=== PATIENT | male | born 1945 | race Caucasian/White ===

== ENCOUNTER 2018-01-11 07:43 | Day surgery (SDC) | payer OTHER ==
--- NOTE | 2018-01-11 08:23 | PDGENHP ---
History & Physical Chief Complaint: H/O CLOTS AND PE. PRE-MSK SURGERY FILTER PLACEMENT History of Present Illness: RLE CLOT X A LEAST ONE YEAR. H/O PE. NEEDS RT KNEE AND LT SHOULDER SURGERIES. Pertinent Past, Social, Family History: NONE SMOKER. 2016 BACK SURGERY. Relevant Physical Exam: N/A Cardiorespiratory Assessment: RRR, CTA
--- NOTE | 2018-01-11 08:25 | PDPROPOC ---
Sedation Plan of Care Sedation Plan of Care: vital signs stable, mental status noted, patient educated of risks, benefits, alternatives, patient can tolerate sedation ASA Classification: ASA 1 Planned drugs: fentanyl, midazolam Mallampati Score: Class 1 Mallampati Reference Image: Patient passed 3-3-2 rule?: Yes
[2018-01-11] MEDS ORDERED: FLUMAZENIL 0.5 MG/5 ML MDV IVP ONE (08:46)
[2018-01-11] MEDS ORDERED: NALOXONE HCL 0.4 MG/ML INJ ONE (08:47)
[2018-01-11] MEDS ORDERED: MIDAZOLAM 2 MG/2 ML VIAL ONE (08:47)
[2018-01-11] MEDS ORDERED: fentaNYL 100 MCG/2 ML INJ ONE (08:47)
[2018-01-11] MEDS ORDERED: fentaNYL 100 MCG/2 ML INJ IVP PRN (08:56)
[2018-01-11] MEDS ORDERED: FLUMAZENIL 0.5 MG/5 ML MDV IVP PRN (08:56)
[2018-01-11] MEDS ORDERED: MIDAZOLAM 2 MG/2 ML VIAL IVP PRN (08:56)
[2018-01-11] MEDS ORDERED: MEPERIDINE 25 MG/ML SYR IVP PRN (08:56)
[2018-01-11] MEDS ORDERED: NALOXONE HCL 0.4 MG/ML INJ IVP PRN (08:56)
[2018-01-11] MEDS ORDERED: NS 1,000 ML IV SCH (09:00)
[2018-01-11 09:17] LABS: INR 1.15 (0.83-1.16); PROTIME(PATIENT) 14.9 SEC (12.0-15.0)
[2018-01-11] MEDS ORDERED: LIDOCAINE 1% 300 MG/30 ML SDV ONE (09:50)
[2018-01-11] MEDS ORDERED: IOPAMIDOL (ISOVUE-300) 100 ML BTL ONE (09:50)
[2018-01-11] MEDS ORDERED: ONDANSETRON 4 MG/2 ML VIAL IVP PRN (10:00)
[2018-01-11] MEDS ORDERED: ACETAMINOPHEN 325 MG TAB PO PRN (10:00)
[2018-01-11 11:47] VITALS: BP 150/95
== END 2018-01-11 11:20 | disposition home or self-care (01) ==
LOC: FIMAGING 07:43
PROVIDERS: ATTEND Radiology Diagnostic Radiology
PROC: B5191ZZ Fluoroscopy of Inferior Vena Cava using Low Osmolar Contrast (ICD-10-PCS; principal; 2018-01-11)
PROC: 06H03DZ Insertion of Intraluminal Device into Inferior Vena Cava, Percutaneous Approach (ICD-10-PCS; principal; 2018-01-11)
PROC: B543ZZA Ultrasonography of Right Jugular Veins, Guidance (ICD-10-PCS; principal; 2018-01-11)
DX: I82.409 Acute embolism and thrombosis of unspecified deep veins of unspecified lower extremity (principal); I26.99 Other pulmonary embolism without acute cor pulmonale; M85.819 Other specified disorders of bone density and structure, unspecified shoulder; I51.9 Heart disease, unspecified; Z79.01 Long term (current) use of anticoagulants
CPT/HCPCS: 37191; 75825; 99152; C1769; J1644; J2250; J2310; J3010; Q9967

== ENCOUNTER 2018-01-23 07:32 | Day surgery (SDC) | payer OTHER ==
[2018-01-23] MEDS ORDERED: LIDOCAINE 1% 2 ML INJ ID PRN (07:56)
[2018-01-23] MEDS ORDERED: LR 1,000 ML IV ONE (07:56)
[2018-01-23] MEDS ORDERED: BUPIVACAINE/EPI 0.5% 30 ML SDV ONE (08:31)
[2018-01-23] MEDS ORDERED: ceFAZolin 2 GM/SWFI 2 GM/20 ML SYR IVP ONE (09:20)
[2018-01-23] MEDS ORDERED: ACETAMINOPHEN 500 MG TAB PO ONE (09:20)
[2018-01-23] MEDS ORDERED: ROPIVACAINE 0.2% 80 MG, EPINEPHrine 0.2 MG, KETOROLAC TROMETHAMINE 30 MG in SYRINGE 0 ML IU ONE (09:20)
--- NOTE | 2018-01-23 09:22 | PDHPUP ---
History & Physical Update H&P update statement: This history and physical update is based on an assessment of the patient which was completed after admission or registration (within 24 hours), but prior to the surgery/procedure. H&P update: H&P reviewed & patient examined
[2018-01-23] MEDS ORDERED: LR 1,000 ML IV SCH (09:30)
[2018-01-23] MEDS ORDERED: ceFAZolin 2 GM/DEXTROSE 100 ML IV ONE (09:30)
[2018-01-23] MEDS ORDERED: MIDAZOLAM 2 MG/2 ML VIAL IVP ONE (09:44)
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
[2018-01-23] MEDS ORDERED: MIDAZOLAM 2 MG/2 ML VIAL ONE (09:47)
[2018-01-23] MEDS ORDERED: PROPOFOL/EMULSION 500 MG/50 ML BOTTLE IV ONE (09:54)
[2018-01-23] MEDS ORDERED: fentaNYL 100 MCG/2 ML INJ ONE (09:56)
[2018-01-23] MEDS ORDERED: ONDANSETRON 4 MG/2 ML VIAL ONE (10:20)
[2018-01-23] MEDS ORDERED: HYDROmorphONE/DILAUDID 1 MG/ML INJ IVP PRN (10:45)
[2018-01-23] MEDS ORDERED: PROMETHAZINE HCL 25 MG/ML INJ IVP PRN (10:45)
[2018-01-23] MEDS ORDERED: oxyCODONE IR 5 MG TAB PO PRN (10:45)
[2018-01-23] MEDS ORDERED: DEXAMETHASONE 4 MG/ML VIAL IVP PRN (10:45)
[2018-01-23] MEDS ORDERED: LR 500 ML IV PRN (10:45)
[2018-01-23] MEDS ORDERED: NALOXONE HCL 0.4 MG/ML INJ IVP PRN (10:45)
[2018-01-23] MEDS ORDERED: ONDANSETRON 4 MG/2 ML VIAL IVP PRN (10:45)
[2018-01-23] MEDS ORDERED: ALBUTEROL 3 ML DEYVIAL IH PRN (10:45)
[2018-01-23] MEDS ORDERED: HYDROCODONE/APAP 5/325 TAB PO PRN (10:45)
[2018-01-23] MEDS ORDERED: fentaNYL 100 MCG/2 ML INJ IVP PRN (10:45)
--- NOTE | 2018-01-23 12:02 | POSTOPPROG ---
Post Op Note Date of Operation: 01/23/18 Surgeon: Mauro Norris Flavor Tank Tender: Dustin Anesthesiologist: Jose Angel Post-op Diagnosis: Left shoulder torn rotator cuff Procedure: L RCR and biceps tenodesis Inf/Abcess present in the surg proc area at time of surgery?: No EBL: 50-100
--- NOTE | 2018-01-23 13:01 | GOP ---
[f rep st] OPERATIVE REPORT DATE OF OPERATION: 01/23/2018 SURGEON: Mauro Norris MD FLOUR BLENDER HELPER: aSeed Chan CFA. ANESTHESIA: Combination of a shoulder nerve block and general anesthesia. ANESTHESIOLOGIST: Dr. Mani Walter. PREOPERATIVE DIAGNOSIS: Left shoulder complete rotator cuff tear with biceps tendon degeneration and subluxation. POSTOPERATIVE DIAGNOSIS: Left shoulder complete rotator cuff tear with biceps tendon degeneration an d subluxation. PROCEDURE PERFORMED: 1. Left shoulder open rotator cuff repair. 2. Left shoulder tenodesis of the long head of the biceps. FINDINGS: DESCRIPTION OF PROCEDURE: The patient was given 2 g of preoperative IV Ancef within 60 minutes of vila rgery. He was placed on the operating room table and given a nerve block in the left shoulder. He w as then placed supine and given general anesthesia. His left shoulder and left upper extremity were prepped with ChloraPrep from the neck all the way to the fingertips. It was draped free using steril e sheets, towels, and stockinette and Ioban plastic drape. He was placed in a beach chair semi-sitti ng position. His right arm was carefully padded and secured across his abdomen. I made a 2 inch anterolateral incision beginning up over the acromion and extending distally and slig htly laterally. Subcutaneous tissues were sharply divided, and hemostasis was obtained using electro cautery. The deltoid origin was identified. I carefully divided the deltoid origin off the anterola teral surface of the acromion. I made a vertical split in the deltoid fibers to created a T-shaped o pening. There was immediately visible a large rotator cuff tear. This was approximately 3 cm x 2 cm . The remaining tendon looked quite healthy. The humeral head was depressed. A partial acromionect angelito was performed with the power oscillating saw. He had a very significant downward hook on the acr omion. The biceps tendon was inspected. It was badly delaminated and degenerated. I elected to proceed wit h a biceps tenodesis. I marked the level of the tenodesis with the marking pin. I then divided the attachment at the superior aspect of the glenoid. Excess tendon was removed. I used the Arthrex bic eps tenodesis kit with a 7 mm x 23 mm screw. A whipstitch was placed through the stump of the tendon . The tendon was pushed into the bony hole that I created and it was secured with a 7 mm x 23 mm int erference screw. There was tight fixation of the tendon. I then went back to the rotator cuff repair. This was an oval tear with retraction. The remaining t endon looked quite healthy. The tendon could be pulled down to its normal attachment point without e xcessive tension or pressure. I used a bur to create a roughened trough at the base of the greater t uberosity. I used a curved tech drill to drill 3 holes through the greater tuberosity. I placed a s eries of mattress sutures with #2 FiberWire sutures through the tendon. These were pulled out throug h the holes in the bone. I put a 2nd layer of simple sutures with #2 FiberWire sutures. All of thes e were tightened and tied securely. This provided a very strong repair pulling the tendon back into its anatomic position. Posteriorly, there was some tearing of the infraspinatus. I repaired this wi th a qwelvi-yv-rlsug #2 FiberWire tendon to tendon sutures. His arm could be brought all the way to his side without excessive tension on the repair. The wound was thoroughly irrigated. The deltoid was attached to the edge of the acromion using #2 Fi berWire sutures through the holes in the acromion bone. This was a secure repair. The split in the deltoid was repaired with a running 3-0 Vicryl suture. The subcutaneous tissues around the skin edges were infiltrated with 10 cc of 0.5% Marcaine with epin ephrine. The subcutaneous tissues were closed with interrupted 3-0 Vicryl sutures. The skin was cristy sed with a running 4-0 Monocryl subcuticular suture. The skin edges were glued. The wound was cover ed with a small piece of sterile Mepilex surgical dressing. He was immobilized in a slingshot shoulder immobilizer with a small abduction pad. He was awakened from anesthesia, transferred to his [facility] and taken to PACU in satisfactory condition. There were no recognized intraoperative complications. Saeed Galindo acted as a salesperson surgical appliances. His assistance was a medical necessity. Copy requested to: Robert Prabhakar MD [place], [place] /[id number]/[facility]
[2018-01-23 14:55] VITALS: BP 132/82
== END 2018-01-23 14:25 | disposition home or self-care (01) ==
LOC: FSGY 07:32
PROVIDERS: ATTEND Orthopaedic Surgery
PROC: 0LM40ZZ Reattachment of Left Upper Arm Tendon, Open Approach (ICD-10-PCS; principal; 2018-01-23 09:15)
PROC: 0LQ20ZZ Repair Left Shoulder Tendon, Open Approach (ICD-10-PCS; principal; 2018-01-23 09:15)
DX: M75.122 Complete rotator cuff tear or rupture of left shoulder, not specified as traumatic (principal); M67.922 Unspecified disorder of synovium and tendon, left upper arm; S46.112A Strain of muscle, fascia and tendon of long head of biceps, left arm, initial encounter
CPT/HCPCS: C1713; J0171; J0690; J1885; J2250; J2405; J2704; J2795; J3010

== ENCOUNTER 2018-07-02 05:50 | Observation (INO) | payer OTHER ==
[2018-07-02] MEDS ORDERED: TRANEXAMIC ACID 3,000 MG in NS (SYRINGE) 50 ML IRR ONE (06:00)
[2018-07-02] MEDS ORDERED: TRANEXAMIC ACID 1,000 MG in NS 100 ML IV ONE (06:00)
[2018-07-02] MEDS ORDERED: POVIDONE-IODINE 20 ML in SODIUM CL IRRIG SOLUTION 500 ML IRR ONE (06:00)
[2018-07-02] MEDS ORDERED: ROPIVACAINE 0.2% 80 MG, EPINEPHrine 0.2 MG, KETOROLAC TROMETHAMINE 30 MG in SYRINGE 0 ML IU ONE (06:00)
[2018-07-02] MEDS ORDERED: ceFAZolin 2 GM/DEXTROSE 100 ML IV ONE (06:27)
[2018-07-02] MEDS ORDERED: ACETAMINOPHEN 325 MG TAB PO ONE (06:27)
[2018-07-02] MEDS ORDERED: GABAPENTIN 300 MG CAP PO ONE (06:27)
[2018-07-02] MEDS ORDERED: DEXAMETHASONE 4 MG/ML VIAL IVP ONE (06:27)
[2018-07-02] MEDS ORDERED: FAMOTIDINE 20 MG TAB PO ONE (06:27)
[2018-07-02] MEDS ORDERED: ONDANSETRON 4 MG/2 ML VIAL IVP ONE (06:27)
[2018-07-02] MEDS ORDERED: LIDOCAINE 1% 2 ML INJ ID PRN (06:28)
[2018-07-02] MEDS ORDERED: LR 1,000 ML IV ONE (06:28)
[2018-07-02] MEDS ORDERED: ceFAZolin 1 GM/5 ML SYR ONE (06:48)
[2018-07-02] MEDS ORDERED: VANCOMYCIN 1 GM VIAL ONE (06:48)
[2018-07-02] MEDS ORDERED: TRANEXAMIC ACID 3,000 MG/50 ML BAG IRR ONE (06:48)
[2018-07-02] MEDS ORDERED: PROPOFOL/EMULSION 500 MG/50 ML BOTTLE IV ONE ×2 (06:50→07:58)
[2018-07-02] MEDS ORDERED: MIDAZOLAM 2 MG/2 ML VIAL ONE (07:00)
[2018-07-02] MEDS ORDERED: MIDAZOLAM 2 MG/2 ML VIAL IVP ONE (07:01)
[2018-07-02] MEDS ORDERED: HYDROmorphONE/DILAUDID 2 MG/ML INJ IVP PRN (07:02)
[2018-07-02] MEDS ORDERED: ALBUTEROL 3 ML DEYVIAL IH PRN (07:02)
[2018-07-02] MEDS ORDERED: ACETAMINOPHEN 500 MG TAB PO PRN (07:02)
[2018-07-02] MEDS ORDERED: ONDANSETRON 4 MG/2 ML VIAL IVP PRN ×2 (07:02→09:22)
[2018-07-02] MEDS ORDERED: NALOXONE HCL 0.4 MG/ML INJ IVP PRN ×2 (07:02→10:20)
[2018-07-02] MEDS ORDERED: fentaNYL 100 MCG/2 ML INJ IVP PRN (07:02)
[2018-07-02] MEDS ORDERED: oxyCODONE IR 5 MG TAB PO PRN ×2 (07:02→09:22)
[2018-07-02] MEDS ORDERED: ONDANSETRON 4 MG/2 ML VIAL ONE (07:25)
[2018-07-02] MEDS ORDERED: DEXAMETHASONE 4 MG/ML VIAL ONE (07:25)
[2018-07-02] MEDS ORDERED: ROPIVACAINE HCL 150 MG/30 ML INJ ONE (07:39)
[2018-07-02] MEDS ORDERED: PROPOFOL 200 MG/20 ML VIAL ONE (08:48)
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
--- NOTE | 2018-07-02 09:07 | POSTOPPROG ---
Post Op Note Date of Operation: 07/02/18 Surgeon: Mauro Norris Color Consultant: Adriel Anesthesiologist: Edgar Anesthesia: IV Sedation, Spinal Post-op Diagnosis: Right knee severe degenerative arthritis with varus deformity Procedure: Right total knee arthroplasty Inf/Abcess present in the surg proc area at time of surgery?: No EBL: 50-100 (Adductor canal block with indwelling catheter in PACU)
[2018-07-02] MEDS ORDERED: CYCLOBENZAPRINE 10 MG TAB PO PRN (09:22)
[2018-07-02] MEDS ORDERED: POLYETHYLENE GLYCOL 3350 17 GM PKT PO PRN (09:22)
[2018-07-02] MEDS ORDERED: PROMETHAZINE HCL 25 MG/ML INJ IVP PRN (09:22)
[2018-07-02] MEDS ORDERED: LACTULOSE 20 GM/30 ML UDCUP PO PRN (09:22)
[2018-07-02] MEDS ORDERED: NS 500 ML IV PRN (09:22)
[2018-07-02] MEDS ORDERED: MAGNESIUM HYDROXIDE 30 ML UDCUP PO PRN (09:22)
[2018-07-02] MEDS ORDERED: BISACODYL 10 MG SUPP PR PRN (09:22)
[2018-07-02] MEDS ORDERED: traMADol 50 MG TAB PO PRN (09:22)
[2018-07-02] MEDS ORDERED: TEMAZEPAM 15 MG CAP PO PRN (09:22)
[2018-07-02] MEDS ORDERED: METOCLOPRAMIDE 10 MG/2 ML VIAL IVP PRN (09:22)
[2018-07-02] MEDS ORDERED: diphenhydrAMINE 25 MG CAP PO PRN (09:22)
[2018-07-02] MEDS ORDERED: PROMETHAZINE HCL 25 MG SUPPR PR PRN (09:22)
[2018-07-02] MEDS ORDERED: DIPHENOXYLATE/ATROPINE LOMOTIL 1 TAB PO PRN (09:22)
[2018-07-02] MEDS ORDERED: ONDANSETRON DISINTEGRATING 4 MG TAB PO PRN (09:22)
[2018-07-02] MEDS ORDERED: LR 1,000 ML IV SCH (09:30)
[2018-07-02] MEDS ORDERED: hydrALAZINE 20 MG/ML VIAL ONE (09:39)
[2018-07-02] MEDS: hydrALAZINE 20 MG/ML VIAL IVP PRN ×2 (09:41→09:51)
[2018-07-02] MEDS ORDERED: HYDROmorphONE/DILAUDID 2 MG/ML INJ ONE (09:46)
[2018-07-02] MEDS ORDERED: fentaNYL 100 MCG/2 ML INJ ONE (09:46)
--- NOTE | 2018-07-02 10:05 | POSTANESTH ---
Post Anesthetic Evaluation Cardiovascular Status: Normal, Stable, Tx Hyper/Hypo-tension Respiratory Status: Normal, Stable Level of Consciousness/Mental Status: Can Participate in Eval, Alert and Oriented Pain Control: Adequate, Prn Tx Ordered Nausea/Vomiting Control: Adequate, Prn Tx Ordered Complications Possibly Related to Anesthesia: None Noted
[2018-07-02] MEDS ORDERED: FLUMAZENIL 0.5 MG/5 ML MDV IVP ONE ×2 (10:28→10:31)
--- NOTE | 2018-07-02 10:37 | GOP ---
DATE OF OPERATION: 07/02/2018 SURGEON: Mauro Norris MD TOE STAPLER: Afshin Gomez and Saeed Chan. ANESTHESIA: Combination of Marcaine, spinal, IV sedation, and adductor canal block. ANESTHESIOLOGIST: Ab Hernández DO. PREOPERATIVE DIAGNOSIS: Right knee severe degenerative arthritis with varus deformity. POSTOPERATIVE DIAGNOSIS: Right knee severe degenerative arthritis with varus deformity. PROCEDURE PERFORMED: Right total knee arthroplasty, cemented, Denton and Nephew Journey II, posterior stabilized. FINDINGS: DESCRIPTION OF PROCEDURE: The patient was given 2 g of IV Ancef preoperatively within 60 minutes of surgery. He also received IV tranexamic acid at a dose of 1000 mg. He was placed on the operating r oom table and given spinal anesthesia with Marcaine by Dr. Hernández. He was then placed supine and give n IV sedation. A Johnston catheter was not used. He wore a KYLAH stocking and SCD on the nonoperative le g. His right lower extremity was prepped with ChloraPrep from the upper thigh tourniquet to the tips of the toes. It was draped free using sterile sheets, stockinette, and Ioban plastic adhesive drape . The lower leg was wrapped with compressive Coban. The leg was exsanguinated with elevation and a 6-inch compressive wrap, and the pneumatic tourniquet was inflated to 250 mmHg. The World Health Organization time-out was performed to verify the correct patient identity and the c orrect surgical side and site. The [place] time-out was also performed. The Purer Skinayo leg holding device was sterilely attached to the operating room table and used throughout the procedure to help position the knee. A straight midline incision was made centered on the patell a. Subcutaneous tissues were sharply divided, and hemostasis was obtained using electrocautery. A m edial subcutaneous flap was developed, and the capsule and synovium were opened in a medial parapatel lar fashion. Very extensive degenerative changes were present throughout the knee. He had a modestl y deep erosion on the medial tibial plateau in the posterior medial corner. His medial capsule and p eriosteum were elevated off the rim of the medial tibial plateau all the way around to the posteromed ial corner. Because of his significant preoperative varus deformity I did a moderately aggressive re lease of the medial collateral ligament in order to balance the medial side of the knee. In order to improve exposure, the patella was prepared first. The original thickness of the patella was measured. Peripheral osteophytes were removed. I cut a flat surface on the back of the patella. It was sized for a 38 mm round resurfacing component. I removed enough bone from the patella such that the remaining bone plus the thickness of the patellar component recreated the original thickness of the patella. The composite thickness was 23 mm. The intramedullary alignment guide system was used to set up the distal femoral cut. The distal femu r was cut in 5 degrees of valgus. Because of a preoperative flexion contracture, and because I was u sing the posterior stabilized femoral component, I made a +2 mm cut on the distal femur. The sizing jig was used to determine proper femoral sizing. He was a size 7 from [id number] but a size 6 from hhyof-zw-isid. He was a true size 6 without a shift. The 5 in 1 cutting block was applied, and the anterior and posterior condylar cuts and chamfer cuts were made. The final jig was used to remove t he central portion of the distal femur to accommodate the posterior stabilized femoral component. I was careful to determine proper rotation by referencing off Whitesides line and other bony landmarks. Each cut was checked for accuracy. The femur was sized for a size 6 posterior stabilized component . Next, the tibia was prepared. The proximal tibial cut was made using the extramedullary alignment gu cj system. The cut was made in a few degrees of posterior slope. I was careful to achieve proper v arus valgus alignment and proper rotation. The posterior compartment was cleared of meniscal remnant s. Osteophytes were removed from the back of the femoral condyles. I checked the flexion and extens ion gaps, and they were equal and balanced. The tibia was sized for a size 7 component. With the tr ial components in place, I selected a 9 mm polyethylene posterior stabilized tibial insert. The knee came to full extension and flexed to 130 degrees. His collateral ligaments were stable and balanced in 90 degrees of flexion and full extension. The trial patellar button was applied, and patellar tr acking was checked. Tracking was excellent without any digital pressure. 40 cc of the joint anesthetic cocktail were injected into the posterior capsule, the quadriceps muscl e and tendon areas, and the subcutaneous tissues along the skin edges. The surfaces were prepared for cementing. They were carefully cleaned with the pulsating lavage irri gation and thoroughly dried. The CarboJet device was used to blow dry the cancellous surfaces. A do uble batch of high viscosity methylmethacrylate cement with 2 g of powdered vancomycin added was mixe d. While it was still in a doughy state, all 3 components were cemented in place. Excess cement was removed before it hardened. The 9 mm trial insert was re-tried and was the proper thickness. The actual component was inserted a nd locked into place. The knee was thoroughly irrigated 1 final time with a dilute Betadine solution . The tourniquet was deflated. Total tourniquet time was 61 minutes. 50 cc of tranexamic acid solutio n was irrigated into the wound. The vastus medialis portion of the extensor mechanism was repaired with several interrupted figure-of -eight #2 FiberWire sutures. The capsule and synovium were closed first with multiple interrupted fi syey-or-akied 0 PDS sutures, followed by a running. barbed Ethicon Stratafix PDO suture. Subcutaneou s tissues were closed with a running 0 barbed Ethicon Stratafix Monoderm suture. The skin was closed with a running 3-0 barbed Ethicon Stratafix Monoderm subcuticular suture. The skin was sealed with half-inch Steri-Strips. The wound was covered with a large sterile waterproof Mepilex dressing and a 6-inch compressive wrap. A long-leg compressive stocking and SCD were applied, followed by the cool ing device. The sacral Mepilex dressing was applied. I used a size 6 cemented Denton and Nephew Oxinium posterior stabilized femoral component, size 7 ceme nted tibial base plate, a 9 mm posterior stabilized tibial insert and a 38 mm cemented round all-poly ethylene resurfacing patellar component. The estimated blood loss following deflation of the tourniquet was about 100 cc. The sponge and needle count were correct on 2 occasions. He was awakened from anesthesia, [facility] in satisfactory condition. There were no recognized intraoperative complications. In the PACU for additional posto perative pain control, Dr. Hernández performed an adductor canal block with an indwelling catheter. Afshin Gomez and Saeed Chan acted as surgical assistants. Their assistance was a medical necess ity for safe completion of the procedure. Copy requested to: MD Juanjo Michaud [facility] /[id number]/[facility]
[2018-07-02] MEDS: KETOROLAC 15 MG/1 ML SDV IVP SCH ×3 (11:53→23:08)
[2018-07-02] MEDS: ACETAMINOPHEN 325 MG TAB PO SCH ×3 (11:53→23:02)
[2018-07-02] MEDS: ceFAZolin 2 GM/DEXTROSE 100 ML IV SCH ×2 (15:06→23:02)
[2018-07-02] MEDS: SENNOSIDES/DOCUSATE SODIUM TAB PO SCH (23:01)
[2018-07-02] MEDS: FAMOTIDINE 20 MG TAB PO SCH (23:01)
[2018-07-03] MEDS: KETOROLAC 15 MG/1 ML SDV IVP SCH (06:43)
[2018-07-03] MEDS: ACETAMINOPHEN 325 MG TAB PO SCH ×2 (07:15→12:22)
[2018-07-03] MEDS ORDERED: ROPIVACAINE HCL 150 MG/30 ML INJ ONE (07:23)
[2018-07-03] MEDS ORDERED: RIVAROXABAN 20 MG TAB PO SCH (09:00)
[2018-07-03] MEDS ORDERED: FERROUS SULFATE 140 MG TAB.ER PO SCH (09:00)
[2018-07-03] MEDS: SENNOSIDES/DOCUSATE SODIUM TAB PO SCH (09:17)
[2018-07-03] MEDS: FAMOTIDINE 20 MG TAB PO SCH (09:17)
--- NOTE | 2018-07-03 09:20 | SOAPPROG ---
SOAP Progress Note Assessment/Plan: Assessment: Afebrile. Awake and alert. Has been up and walking. Dsg is dry. Mild pain so far. Films look good. H/H is good. Plan:Up with PT DC later today. 07/03/18 09:20 Objective: Vital Signs Temp Pulse Resp BP Pulse Ox 36.8 C 56 L 13 112/76 94 07/03/18 07:26 07/03/18 08:15 07/03/18 08:15 07/03/18 08:15 07/03/18 08:15 Laboratory Results 07/03/18 04:35 07/02/18 07/03/18 07/04/18 05:59 05:59 05:59 Intake Total 1900 500 Balance 1900 500 ICD10 Worksheet Patient Problems: Problems Problem Status Onset Osteoarthritis of right knee Acute Complete rotator cuff tear of left shoulder Acute DVT (deep venous thrombosis) Acute
[2018-07-03 09:22] VITALS: BP 112/74
--- NOTE | 2018-07-03 09:46 | GDS ---
ADMISSION DIAGNOSIS: Right knee severe degenerative arthritis. POSTOPERATIVE DIAGNOSIS: Right knee severe degenerative arthritis. OPERATION PERFORMED: July 02, 2018: A right total knee arthroplasty. POSTOPERATIVE COMPLICATIONS: None. CONDITION ON DISCHARGE: Improved. DESCRIPTION OF HOSPITAL COURSE: The patient was admitted to the hospital on the morning of surgery. His admission white blood cell count was 6510, H and H 13.9 and 39.0. The same day, under a combina tion of Marcaine, spinal, IV sedation, and adductor canal block, he underwent a right total knee arth roplasty. Postoperatively, he was treated with multimodal DVT prophylaxis. He has had previous thro mboembolic disease. His Xarelto was restarted on the first postoperative day. On the 1st postop day , his hemoglobin and hematocrit were 12.5 and 34.3. He did not require transfused blood. He was see n by Physical Therapy and made good progress with ambulation and stairs. By the time of discharge, abiodun hall was afebrile and was independent walking with his walker partial weightbearing on the right. DISPOSITION: He is discharged to his home in [place]. He will go to outpatient PT in [facility] next week. He may progress to full weightbearing on the right as tolerated. Continue Xarelto 20 m g per day. Continue KYLAH stockings for 1 week. He has prescriptions for Celebrex, oxycodone, and tra madol for pain control. I will see him back in the office on July 15, 2018. If any problems, he is to call me at the office. Copy requested to: Dr. Robert Prabhakar [place], [place] /[id number]/MOD[facility]
[2018-07-03] MEDS ORDERED: LIPID EMULSION 20% 100 ML IV PRN (10:06)
--- NOTE | 2018-07-03 10:06 | PDPAINCON ---
Pain Management Consultation Patient referred by : Myrna - Subjective Pain at rest (/10): 0 Pain with activity (/10): 0 Pain is: no pain at all Activity: out of bed with assistance - Objective Technique: continuous peripheral nerve block Site: femoral Continuous infusion: ropivicaine Catheter site: clean, dry, intact, no erythema/edema/exudate Sensory and motor exam: consistent with block Vital signs: stable - Assessment/Plan Assessment/Plan: pain well-controlled, continue current mgmt (Pt reports no pain. Doing very well. AC catheter bolused 30 ml 0.5% Ropivicaine and removed. )
--- NOTE | 2018-07-03 10:15 | ASMTLACE ---
LACE Length of stay for Answers: 2 days current admission Acuity / Level of Answers: No Care: Did the patient have an inpatient admission? Comorbidities - select Answers: Opioid dependence all that apply / Chronic pain Other Notes: Hx of PE/DVT # of Emergency department Answers: 0 visits in the last 6 months Score: 7 Date Signed: 07/03/2018 10:14 AM Electronically Signed By:NEFTALI Martin
--- NOTE | 2018-07-03 10:17 | ASMTCMCOM ---
CM Note CM Note Notes: PT rec home/outpatient. MD rec outpatient. No CM d/c needs identified. Date Signed: 07/03/2018 10:16 AM Electronically Signed By:NEFTALI Martin
== END 2018-07-03 12:35 | disposition home or self-care (01) ==
LOC: F3N 05:50 → EDSTATUS 07:15 → F3N 11:02
PROVIDERS: ADMIT Orthopaedic Surgery; ATTEND Orthopaedic Surgery
PROC: 0SRC069 Replacement of Right Knee Joint with Oxidized Zirconium on Polyethylene Synthetic Substitute, Cemented, Open Approach (ICD-10-PCS; principal; 2018-07-02 07:15)
DX: M17.11 Unilateral primary osteoarthritis, right knee (principal); Z86.718 Personal history of other venous thrombosis and embolism; Z86.711 Personal history of pulmonary embolism; Z79.01 Long term (current) use of anticoagulants
CPT/HCPCS: 27447; 73560; 77073; 88311; 97110; 97116; 97161; 97165; C1713; C1776; G0378; G8987; G8988; G8989; J0171; J0360; J0690; J1100; J1170; J1885; J2250; J2405; J2704; J2795; J3010; J3370

== ENCOUNTER 2018-12-04 08:25 | Day surgery (SDC) | payer OTHER ==
[2018-12-04] MEDS ORDERED: MIDAZOLAM 2 MG/2 ML VIAL IVP PRN (08:32)
[2018-12-04] MEDS ORDERED: fentaNYL 100 MCG/2 ML INJ IVP PRN (08:32)
[2018-12-04] MEDS ORDERED: FLUMAZENIL 0.5 MG/5 ML MDV IVP PRN (08:32)
[2018-12-04] MEDS ORDERED: NALOXONE HCL 0.4 MG/ML INJ IVP PRN (08:32)
[2018-12-04] MEDS ORDERED: NS 1,000 ML IV SCH (08:45)
--- NOTE | 2018-12-04 10:08 | PDPROPOC ---
Sedation Plan of Care Sedation Plan of Care: vital signs stable, mental status noted, patient educated of risks, benefits, alternatives, patient can tolerate sedation ASA Classification: ASA 2 Planned drugs: fentanyl, midazolam Mallampati Score: Class 1 Mallampati Reference Image: Patient passed 3-3-2 rule?: Yes
--- NOTE | 2018-12-04 10:08 | PDGENHP ---
History & Physical Chief Complaint: FILTER PLACED OVER A YEAR AGO History of Present Illness: FILTER PLACED FOR DVT AND SURGERIES Pertinent Past, Social, Family History: LEFT ROTATOR CUFF REPAIR. BACK SURGERY ; KNEE SCOPE. Relevant Physical Exam: NO DISTRESS Cardiorespiratory Assessment: RRR, CTA
[2018-12-04] MEDS ORDERED: IOPAMIDOL (ISOVUE-300) 100 ML BTL ONE (10:45)
[2018-12-04] MEDS ORDERED: LIDOCAINE 1% 300 MG/30 ML SDV ONE (10:47)
[2018-12-04] MEDS ORDERED: ACETAMINOPHEN 325 MG TAB PO PRN (11:02)
[2018-12-04] MEDS ORDERED: ONDANSETRON 4 MG/2 ML VIAL IVP PRN (11:02)
--- NOTE | 2018-12-04 11:03 | PDRADPN ---
Radiology Procedure Note Date of Procedure: 12/04/18 Radiologist: Cortney Mg Anesthesia: IV Sedation Pre-op Diagnosis: filter placed a year ago Post-op Diagnosis: same Indication: needs filter removal Procedure: filter removal Inf/Abcess present in the surg proc area at time of surgery?: No
[2018-12-04 11:07] VITALS: BP 123/86
== END 2018-12-04 11:50 | disposition home or self-care (01) ==
LOC: FIMAGING 08:25
PROVIDERS: ATTEND Radiology Diagnostic Radiology
DX: Z45.2 Encounter for adjustment and management of vascular access device (principal); Z86.718 Personal history of other venous thrombosis and embolism
CPT/HCPCS: 37193; 75825; 76937; 99152; C1769; C1773; C1892; J1644; J2250; J2310; J3010; Q9967